=== PATIENT | male | born 1960 | race Caucasian/White ===

== ENCOUNTER 2020-09-15 13:55 | Emergency (ER) | payer OTHER, SELFPAY ==
[~2020-09-15] VITALS: Ht 182.9 cm; Wt 90.6 kg
[2020-09-15] MEDS ORDERED: ROSU20TA5 PO (14:25)
[2020-09-15] MEDS ORDERED: METF-839 PO (14:25)
[2020-09-15] MEDS ORDERED: LIDOCAINE 1% MDV 20ML VIAL SC ONE (14:30)
--- NOTE | 2020-09-15 14:50 | REP ---
INDICATION: cut with blade r/o bone involvement. COMPARISON: None. TECHNIQUE: Four views FINDINGS: Four views of the left index finger and left long finger demonstrate soft tissue swelling over the dorsal aspect of the middle phalanx of the index finger. No soft tissue or intra articular gas is seen.. No fracture or subluxation is seen. No opaque foreign body noted. IMPRESSION: Soft tissue swelling. No fracture or opaque foreign body seen.. <Electronically signed by Kirby Carson > 09/15/20 [id number]
[2020-09-15] MEDS ORDERED: AUGM875T28 PO (15:36)
[2020-09-15 15:58] VITALS: BP 148/70
== END 2020-09-15 16:05 | disposition home or self-care (01) ==
LOC: M ED 13:55
DX: S61.211A Laceration without foreign body of left index finger without damage to nail, initial encounter (principal); S61.213A Laceration without foreign body of left middle finger without damage to nail, initial encounter; W29.0XXA Contact with powered kitchen appliance, initial encounter; Y92.89 Other specified places as the place of occurrence of the external cause; Y93.9 Activity, unspecified; Y99.0 Civilian activity done for income or pay; E11.9 Type 2 diabetes mellitus without complications; F17.200 Nicotine dependence, unspecified, uncomplicated; Z79.84 Long term (current) use of oral hypoglycemic drugs; Z79.899 Other long term (current) drug therapy

== ENCOUNTER → 2024-08-05 | Outpatient (CLI) | payer OTHER ==
[~2024-08-05] MED LIST: AUGM875T28 PO; METF-839 PO; ROSU20TA61 PO
== END ==
LOC: M WUC 09:57
PROVIDERS: ATTEND Family Medicine
DX: R05.9 Cough, unspecified (principal); Z72.0 Tobacco use

== ENCOUNTER → 2025-01-12 | Outpatient (CLI) | payer OTHER ==
[~2025-01-12] MED LIST changes: -ROSU20TA61 PO; +ROSU20TA86 PO
== END ==
LOC: M RAD 08:29
PROVIDERS: ATTEND Family Medicine
DX: Z12.2 Encounter for screening for malignant neoplasm of respiratory organs (principal); F17.210 Nicotine dependence, cigarettes, uncomplicated